=== PATIENT | female | born 1965 | race Hispanic/Latino ===

== ENCOUNTER 2020-08-18 17:08 | Emergency (ER) | payer SELFPAY ==
[2020-08-18] MEDS ORDERED: Ketorolac Tromethamine 30 MG/ML VIAL ONE (17:42)
[2020-08-18] MEDS ORDERED: Acetaminophen 500 MG TAB ONE (17:42)
== END 2020-08-18 17:55 | disposition home or self-care (01) ==
LOC: NAV ERS 17:08
DX: M79.604 Pain in right leg (principal); E78.5 Hyperlipidemia, unspecified; Z79.82 Long term (current) use of aspirin
CPT/HCPCS: 96372; 99283; J1885